=== PATIENT | male | born 1955 | race African-American/Black ===

== ENCOUNTER → 2018-01-03 | Outpatient (CLI) | payer OTHER ==
[~2018-01-03] MED LIST: ASA5UEC PO; ASA81BEC PO; ASPIRIN EC81 M1 PO; CEFDINIR300 MG PO; CLONAZEPAM 1 MG1 M1 PO; COLACE100 MG PO; DIAZEPAM 5 MG5 MG PO; EFFIENT10 MG PO; IMDUR 30 MG TAB30 M1 PO; LISINOPRIL10 MG PO; LORTAB 5-500 T1 EAC1 PO; MILK THISTLE200 M1 PO; MULTI VITAMIN1 EACH PO; NEXIUM40 MG PO; NITRO-DUR 0.1M0.1 M1 TD; NITROGLYCERIN0.4 MG SUBLING; NORCO 10-325 T1 EACH PO; NORVASC10 MG PO; OXYCODONE-ACET1 EAC2 PO; PROSCAR 5MG TABL5 MG PO; TAMSULOSIN HCL0.4 MG PO; UROXATRAL10 MG PO
== END | disposition home or self-care (01) ==
LOC: RAD 08:37
DX: M47.816 Spondylosis without myelopathy or radiculopathy, lumbar region (principal)

== ENCOUNTER → 2018-01-08 | Outpatient (CLI) | payer OTHER | LOC: CAT | PROVIDERS: Family Medicine | DX: R43.2 Parageusia (principal); R43.0 Anosmia; R51 Headache ==

== ENCOUNTER → 2018-08-28 | Outpatient (CLI) | payer OTHER | LOC: MRI 09:29 | DX: N40.0 Benign prostatic hyperplasia without lower urinary tract symptoms (principal); M47.896 Other spondylosis, lumbar region; M41.87 Other forms of scoliosis, lumbosacral region; M51.27 Other intervertebral disc displacement, lumbosacral region ==

== ENCOUNTER → 2019-01-15 | Outpatient (CLI) | payer OTHER ==
[~2019-01-15] VITALS: Ht 185.4 cm; Wt 91.2 kg
[~2019-01-15] MED LIST changes: +GABAPENTIN 100100 MG PO; +MOBIC7.5 MG PO; +MS CONTIN 60 MG60 M1 PO; +NEURONTIN 300300 M1 PO; +UROXATRAL PO; +ZESTRIL5 MG PO
[2019-01-15 10:23] VITALS: BP 117/81
--- NOTE | 2019-01-15 10:42 | NUR ---
Pain Clinic Assessment: 1. History of Osteoarthritis: YES History of Rheumatoid Arthritis: Not Applicable 2. Height: 6 ft. 1 in. 185.4 cm. Weight: 201.0 lb. oz. 91.173 kg. Patient's BMI: 26.5 3. Vital Signs: BP: 117/81 Pulse: 82 Resp: 16 Temp: 02 Sat: 100 ECG Mon: 4. Pain Intensity: 8 5. Fall Risk: Dizziness: Y Needs help standing or walking: N Fallen in the last 3 months: Y Fall risk comments: 6. Patient on Blood Thinner: None 7. History of Hypertension: Y 8. Opioid Therapy greater than 6 weeks: Y Opiate Contract Signed: 9. Risk Assessment Tool Provided: 10. Functional Assessment Tool: 11. Recreational Drug Use: Never Drug Type: Tobacco Use: Current Every Day Smoker Tobacco Type: Cigarettes Amount or Packs/day: VARIES How Many Years: Alcohol Use: Yes Frequency: Special Occasions Quant:
== END ==
LOC: PAIN 06:45
DX: M54.5 Low back pain (principal); M25.551 Pain in right hip; M25.552 Pain in left hip; M25.561 Pain in right knee; F17.210 Nicotine dependence, cigarettes, uncomplicated; Z79.899 Other long term (current) drug therapy; Z72.89 Other problems related to lifestyle

== ENCOUNTER → 2019-02-26 | Outpatient (CLI) | payer OTHER ==
[~2019-02-26] VITALS: Ht 182.9 cm; Wt 89.8 kg
[2019-02-26 07:22] VITALS: BP 121/66
--- NOTE | 2019-02-26 07:23 | NUR ---
Pain Clinic Assessment: 1. History of Osteoarthritis: YES History of Rheumatoid Arthritis: Not Applicable 2. Height: 6 ft. 0 in. 182.9 cm. Weight: 198.0 lb. oz. 89.812 kg. Patient's BMI: 26.8 3. Vital Signs: BP: 121/66 Pulse: 69 Resp: 16 Temp: 02 Sat: 99 ECG Mon: 4. Pain Intensity: 7 5. Fall Risk: Dizziness: N Needs help standing or walking: N Fallen in the last 3 months: N Fall risk comments: 6. Patient on Blood Thinner: None 7. History of Hypertension: Y 8. Opioid Therapy greater than 6 weeks: Y Opiate Contract Signed: 9. Risk Assessment Tool Provided: LOW-0 10. Functional Assessment Tool: 55/70 11. Recreational Drug Use: Never Drug Type: Tobacco Use: Current Every Day Smoker Tobacco Type: Amount or Packs/day: How Many Years: Alcohol Use: Yes Frequency: Quant:
--- NOTE | 2019-02-27 09:13 | HPC ---
[facility] [place] [address] PAIN MANAGEMENT CONSULTATION Name: ROSA HARPER Room #: REG [facility].#: [id number] Admission: 02/26/19 ������������������ Attend Phys: Ray Borjas DO Discharge: ������������������ Date of : 51 Report #: [id number] THIS REPORT FOR: //name// CC: ISATU Go DATE OF SERVICE: 02/26/2019 CHIEF COMPLAINT: Low back pain, right lower extremity pain with paresthesias. HISTORY OF PRESENT ILLNESS: As you know, the patient is a 64-year-old male referred to our service by neurosurgery of [facility] for chronic low back pain, chronic lower extremity pain. The patient was seen in consultation per the request of nurse practitioner, Isaut Terry to have the patient evaluated for spinal cord stimulator trial implantation. He was seen in consultation per nurse tiffanie Terry's request on 01/15/2019. He was subsequently sent for psychiatric evaluation as part of the workup prior to spinal cord stimulator implantation. He has completed the spinal cord stimulator pretty requisite and has received authorization to trial the device today. He returns today in followup visit reporting a pain score of 7/10 to undergo spinal cord stimulator trial implantation to address axial back and lower extremity symptoms. ALLERGIES: No known drug allergies. CURRENT MEDICATIONS: Gabapentin 300 mg 3 times a day, meloxicam 7.5 mg once a day, MS Contin 60 mg twice a day, lisinopril 5 mg once a day, Uroxatral 10 mg once a day, nitroglycerin 0.4 mg once a day, finasteride 5 mg once a day, oxycodone 10/325 one tab p.o. q. 6 hours p.r.n. for pain, amlodipine 10 mg per day, clonazepam 1 mg t.i.d. SOCIAL HISTORY: The patient denies tobacco, IV or illicit drug use. Admits to occasional alcohol beverage. He is disabled. He is not receiving workmen's compensation nor is he trying obtain disability benefit. He is not in litigation in regards to pain, is accompanied by his present in room today. IMAGING: There is no new imaging available. PHYSICAL EXAMINATION: VITAL SIGNS: Blood pressure 121/66, pulse 69, respiratory rate 16 and unlabored, the patient 99% on room air, height 6 feet tall, weight 298 pounds, BMI calculated 26.8. GENERAL: Well-developed, well-nourished, well-hydrated 64-year-old male appearing stated age, pain is rated at around 7/10. [address] [address] PAIN MANAGEMENT CONSULTATION Name: ROSA HARPER [id number] Admission: 02/26/19 ������������������ Attend Phys: Ray Borjas DO Discharge: ������������������ Date of : 51 Report #: [id number] HEENT: Normocephalic, atraumatic. Pupils equal, round, reactive, but enlarged. EXTREMITIES: Show no clubbing, no cyanosis, and no edema. MUSCULOSKELETAL: Lower extremity strength is symmetrical 5/5, muscle bulk and tone equal and symmetrical in comparing left lower extremity to right. Gait is antalgic favoring right lower extremity over left. Seated straight leg raising negative. Supine straight leg raising negative. KEMAL test is negative. Modified Gaenslen's positive for axial low back pain. Ankle clonus negative. Babinski is negative. ASSESSMENT: 1. Chronic lumbar radiculopathy. 2. 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 3. Lumbosacral spondylosis with radiculopathy. 4. Chronic intractable pain. PLAN: 1. The patient returns today in followup visit having received precertification to undergo spinal cord stimulator trial implantation under fluoroscopic guidance. The patient has been advised of the risks and the benefits of this procedure. These risks include but are not necessarily limited to bleeding, bruising, infection, worsening pain, no relief of pain, also risk of temporary or permanent muscle weakness, temporary or permanent nerve damage, possible paralysis, post-dural puncture headache and . The patient states understood and wished to proceed. 2. The patient was advised to decrease the use of his oxycodone over the next week while he is doing his trial. He is to remain on the MS Contin 60 mg twice a day as baseline control. This will keep the patient away from any type of withdrawal effects, though he needs to reduce his use of his breakthrough pain medication during the trial to determine if this would be an effective treatment option to be able to reduce the patient's reliance on opioids. 3. The patient was provided prescription of Keflex 500 mg dose 1 tab p.o. b.i.d. I have given the patient #4 tablets this is for post-surgical treatment. He will finish the doses today and tomorrow and discontinue its use. 4. We will see the patient back in followup visit in 1 week. At that time, review the efficacy of today's spinal cord stimulator trial implant and determine if moving forward with permanent implant would be recommended. PROCEDURE NOTE: DESCRIPTION OF PROCEDURE: Spinal cord stimulator trial implantation with two leads under fluoroscopic guidance. After obtaining informed consent, The patient was then taken to the fluoroscopy suite, placed in prone position with 2 pillows under the abdomen to decrease the lumbar lordosis. Cardiopulmonary monitoring was then established and the patient's vital signs were monitored throughout the procedure. The patient's [facility] [address] [place] [address] PAIN MANAGEMENT CONSULTATION Name: ROSA HARPER [id number] Admission: 02/26/19 ������������������ Attend Phys: Ray Borjas DO Discharge: ������������������ Date of : 51 Report #: [id number] thoracolumbar spine was then prepped and draped in aseptic fashion. He was not given IV sedation prior to procedure. An AP fluoroscopic image was obtained to identify marked midline positions of the T10 through L2 spinous processes. Skin was anesthetized with 7 mL of preservative free lidocaine on the right and 8 mL of preservative free lidocaine on the left. Total of 15 mL of lidocaine 1% was injected. This was done prior to the introduction of the 14-gauge 4-inch Tuohy needles. Skin entry site was at the proximal level of the L1 vertebral body. Needle was advanced using a paramedian approach to the right of midline at a 45-degree angle. Loss of resistance to air was utilized to verify placement within the epidural space. Epidural space entered at the T12-L1 interspace. Lateral fluoroscopic view was obtained to confirm the position of the Tuohy needle within the epidural space. Aspiration noted to be negative for heme or cerebrospinal fluid. The patient did not complain of pain or paresthesias with needle placement. The spinal cord stimulating lead was then advanced through the Tuohy needle under direct visualization within the midline. The tip of the stimulating needle lead was then in line with the inferior endplate of T7 vertebral body and located approximately 1 mm from midline. Our attention was then directed to the left side. A 14-gauge 4-inch Tuohy needle was then advanced under fluoroscopic guidance with the approximate starting level of the L1 vertebral body. Needle was advanced in a left paramedian approach approximately 45 degree angle. Loss of resistance to air was utilized to verify placement within the epidural space. Epidural space was entered at the T12-L1 interspace. Lateral fluoroscopic view obtained to confirm the position of the Tuohy needle within the epidural space. Aspiration noted to be negative for heme or cerebrospinal fluid. The patient did not complain of pain or paresthesias with needle placement. The spinal cord stimulating lead was then advanced through the Tuohy needle under direct visualization to the left of midline. The lead was then advanced until the tip of the stimulating lead was then aligned with the superior endplate of T8 vertebral body and located within the midline. At this point, temporary extensions were connected to both the stimulating lead. The stylets were then removed from the Tuohy needles as were the needles themselves. Once both were removed, positions were rechecked of the lead position, making sure they had not changed. A stimulating leads were then anchored to the patient's back with benzoin, Steri-Strips and OpSite bandaging. The patient was then placed in a seated position. We performed multiple maneuvers to potentially cause movement of the leads themselves. The patient was then placed back in a prone position. X-ray imaging did confirm that the leads had displaced by approximately one-half of the vertebral body in an appropriate positioning for programming of the leads with the sweet spot between T9 and T10. The patient tolerated procedure well, carefully escorted to recovery room in stable condition. There were no apparent complications. We spent nearly 30 [facility] [address] [place] [address] PAIN MANAGEMENT CONSULTATION Name: ROSA HARPER Room #: REG CL Raquel#: [id number] Admission: 02/26/19 ������������������ Attend Phys: Ray Borjas DO Discharge: ������������������ Date of : 51 Report #: [id number] minutes of time preparing the patient for the trial itself. The programming was established and the patient was given variable conditions to which they can make adjustments in the device itself. We did advise the patient not to get the area wet. He is not to bathe or shower. The patient was advised if he notes any excessive drainage from the insertion sites increasing back pain, neck pain, fever, chills, night sweats, increasing weakness in the lower extremities, he is to contact the on-call pain physician was given the numbers for the pain physician salesperson men's hats 24 hours a day. If he is having trouble with capture of his typical pain, he is to contact the [employer] device technical account representative for which the patient was given numbers for contact. We will see the patient back in followup visit in 1 week. At that time, we will review the efficacy of the spinal cord stimulator trial and determine if permanent implant would be recommended. ��������������������������������������������� <ELECTRONICALLY SIGNED> ���������������������������������������� By: Ray Borjas DO ��������������������������������������������� 02/27/19 0913 1214 [id number] Ray Borjas DO /nt
== END | disposition home or self-care (01) ==
LOC: PAIN 06:48
DX: M51.16 Intervertebral disc disorders with radiculopathy, lumbar region (principal); M47.897 Other spondylosis, lumbosacral region; Z79.899 Other long term (current) drug therapy; Z98.890 Other specified postprocedural states; M54.5 Low back pain; F17.200 Nicotine dependence, unspecified, uncomplicated

== ENCOUNTER → 2019-03-05 | Outpatient (CLI) | payer OTHER ==
[~2019-03-05] VITALS: Ht 182.9 cm; Wt 90.5 kg
--- NOTE | ~2019-03-05 | HPC ---
[facility] [place] [address] PAIN MANAGEMENT CONSULTATION Name: ROSA HARPER Room #: REG [facility].#: [id number] Admission: 03/05/19 ������������������ Attend Phys: Ray Borjas DO Discharge: ������������������ Date of : 51 Report #: [id number] THIS REPORT FOR: //name// CC: Glory Go MD DATE OF SERVICE: 03/05/2019 REFERRING PHYSICIAN: Nurse practitioner, Milagros Terry. CHIEF COMPLAINT: Low back pain, right lower extremity pain and paresthesias. HISTORY OF PRESENT ILLNESS: As you know, the patient is a 64-year-old male who has just completed a successful spinal cord stimulator trial. The patient reports about 70% improvement in overall pain with the device. He did very well until just recently, where he believes he might have "moved the lead". He lost efficacy with the device late afternoon yesterday. He returns today for explantation of the device and to discuss the possibility of moving forward to permanent implant. ALLERGIES: No known drug allergies. CURRENT MEDICATIONS: Gabapentin, meloxicam, MS Contin, lisinopril, Uroxatral, nitroglycerin, finasteride, oxycodone, amlodipine and clonazepam. SOCIAL HISTORY: The patient denies tobacco, IV or illicit drug use. Admits to occasional alcoholic beverage. He is on disability. He is accompanied by his , present in the room today. IMAGING: No new imaging available. PHYSICAL EXAMINATION: VITAL SIGNS: Blood pressure 101/78, pulse 83 and respiratory rate 14 and unlabored. The patient is 99% on room air. Height 6 feet tall, weight 199.6 pounds and BMI calculated 27.1. GENERAL: Well-developed, well-nourished and well-hydrated 64-year-old male, appearing his stated age, placing current pain score around 0/10. HEENT: Normocephalic, atraumatic. Pupils equal, round and reactive to light. EXTREMITIES: Show no clubbing, no cyanosis and no edema. MUSCULOSKELETAL: Lower extremity strength appears symmetrical, 5/5. Muscle bulk and tone equal and symmetrical when comparing left lower extremity to right. Gait is antalgic, favoring right lower extremity over the left. Seated straight leg raising negative. Supine straight leg raising negative. There is clean, dry and intact bandaging from the spinal cord stimulator trial in place [address] [address] PAIN MANAGEMENT CONSULTATION Name: ROSA HARPER Room #: REG CLI [facility]#: [id number] Admission: 03/05/19 ������������������ Attend Phys: Ray Borjas DO Discharge: ������������������ Date of : 51 Report #: [id number] over the lumbar spine. ASSESSMENT: 1. Chronic lumbar radiculopathy. 2. Displacement of the lumbar intervertebral disk with radiculopathy. 3. Lumbosacral spondylosis with radiculopathy. 4. Failed lumbar spine surgery. 5. Chronic intractable pain. PLAN: 1. The patient has returned today in followup visit for explantation of the spinal cord stimulating device. The patient did very well with this trial, receiving 70% or greater improvement in overall pain utilizing the [employer] device. He is very pleased with response to this device and wishes to move forward with permanent implantation. 2. The patient will contact Dr. Tran's office for return visit and scheduling of the implantation of a [employer] Device to help with low back pain and right lower extremity symptoms. As indicated above, the patient received greater than 70% improvement in overall pain and was able to return to the majority of his activities of daily living without significant pain interference. The patient knew when he displaced the leads, as his pain intensified on the right leg beginning with cramping sensations and spasming. This continues today even with adjustments in the programming prior. He returns for explantation of the device, but does wish to move forward with the permanent implant in hopes of gaining improvement in symptoms. PROCEDURE NOTE DESCRIPTION OF PROCEDURE: Explantation of a spinal cord stimulating device. DESCRIPTION OF PROCEDURE: The patient was placed in a seated position. We removed all OpSite bandaging and Steri-Strips. There were two spinal cord stimulator leads in place. There was no erythema or drainage around the insertion sites. The leads were extracted without complication. The leads had both tips intact as well as all the 8 electrodes on each lead. The back was then cleaned sterilely and sterile bandages were then placed over the injection sites. The patient was advised not to get the area wet for the next 24 hours; he could then begin to shower and do normal activities as tolerated. ��������������������������������������������� ���������������������������������������� By: ��������������������������������������������� 1304 0001 Ray Borjas DO /nt
[2019-03-05 10:32] VITALS: BP 101/78
--- NOTE | 2019-03-05 10:53 | NUR ---
Pain Clinic Assessment: 1. History of Osteoarthritis: YES History of Rheumatoid Arthritis: Not Applicable 2. Height: 6 ft. 0 in. 182.9 cm. Weight: 199.6 lb. oz. 90.538 kg. Patient's BMI: 27.1 3. Vital Signs: BP: 101/78 Pulse: 83 Resp: 14 Temp: 02 Sat: 99 ECG Mon: 4. Pain Intensity: 0 5. Fall Risk: Dizziness: Y Needs help standing or walking: N Fallen in the last 3 months: N Fall risk comments: 6. Patient on Blood Thinner: None 7. History of Hypertension: Y 8. Opioid Therapy greater than 6 weeks: Y Opiate Contract Signed: 9. Risk Assessment Tool Provided: LOW-0 10. Functional Assessment Tool: 55/70 11. Recreational Drug Use: Never Drug Type: Tobacco Use: Current Every Day Smoker Tobacco Type: Amount or Packs/day: How Many Years: Alcohol Use: Yes Frequency: Quant:
== END ==
LOC: PAIN 06:57
DX: M51.16 Intervertebral disc disorders with radiculopathy, lumbar region (principal); M47.27 Other spondylosis with radiculopathy, lumbosacral region; G89.29 Other chronic pain; Z79.899 Other long term (current) drug therapy

== ENCOUNTER → 2019-09-10 | Outpatient (CLI) | payer OTHER ==
[~2019-09-10] VITALS: Ht 182.9 cm; Wt 90.7 kg
[~2019-09-10] MED LIST changes: +LINZESS290 MCG PO; +PROAIR HFA8.5 GM INH
--- NOTE | 2019-09-12 16:06 | PATH ---
[facility] [address] [place] [address] PATHOLOGY RPT PROCEDURE Name: LIT RAYGOZA Room #: REG [facility] Rosalie.#: [id number] Admission: 09/10/19 Date of : 51 Discharge: Report #: [id number] Path Case #: [id number] [facility] Accession Number: [id number] . 01 Material submitted: . PART A: duodenum - BX OF DUODENUM PART B: stomach - BX OF ANTRUM PART C: esophagus - BX OF DISTAL ESOPHAGUS. Modifiers: distal PART D: esophagus - BX OF MID ESOPHAGUS. Modifiers: mid PART E: esophagus - BX OF UPPER ESOPHAGUS. Modifiers: upper . 01 Clinical history: . Esophagitis, hiatal hernia, gastritis . 02 Diagnosis: A. Small bowel mucosa, duodenum R/O celiac disease, endoscopic biopsy: - No diagnostic abnormalities present. - Negative for villous blunting or increase in intraepithelial lymphocytes. . B. Gastric mucosa, antrum R/O H. pylori, endoscopic biopsy: - Mild reactive gastropathy. - Negative for intestinal metaplasia or atrophy. - Negative for Helicobacter pylori (properly controlled immunohistochemical stain performed. . C. Gastric cardia-type mucosa, distal esophagus to R/O eosinophilic esophagitis, endoscopic biopsy: - Mild chronic inflammation. - Squamous epithelium not present for evaluation. - No increase in eosinophils within the infiltrate. - Negative for intestinal metaplasia or dysplasia. . D. Squamous mucosa, mid esophagus to R/O eosinophilic esophagitis, endoscopic biopsy: - Mild active esophagitis. - Negative for increase in intraepithelial eosinophils. - Negative for intestinal metaplasia or dysplasia. . E. Squamous mucosa, upper esophagus to R/O Emeka, endoscopic biopsy: - Mild to moderate active esophagitis with numerous intraepithelial neutrophils. - No increase in intraepithelial eosinophils (1-2/hpf). - S fungal special stain ordered, to be reported as an addendum. (IUV:jael; 09/11/2019) S 09/11/2019 1352 Local . [address] [address] PATHOLOGY RPT PROCEDURE Name: LIT RAYGOZA Room #: REG [facility].#: [id number] Admission: 09/10/19 Date of : 51 Discharge: Report #: [id number] Path Case #: [id number] Addendum: . This addendum is issued subsequent to reviewing a properly controlled S fungal special stain performed on block E1. It shows no definite fungal hyphal elements present within the intact epithelium. The originally rendered diagnosis remains unchanged. (IUV:jael; 09/12/2019) . . . Professional services performed by [facility] at [facility], [address], [place] [address]. Technical services performed by [facility] at [address] [place] [address], [address], [place] [address]. QTP/09/12/2019 Addendum Electronically Signed by Sabien Pierre MD, Pathologist . 02 Electronically signed: . Sabine Pierre MD, Pathologist NPI- [id number] . 01 Gross description: . A. Received in formalin labeled "Lit Raygoza BX of duodenum," and additionally labeled on the requisition as "to rule out celiac," is a single segment of schmitz soft tissue measuring 0.5 cm in maximum dimension. The specimen is entirely submitted in cassette A1. . B. Received in formalin labeled "Lit Raygoza, BX of antrum," and additionally labeled on the requisition as "to rule out H. pylori," are 2 segments of schmitz soft tissue measuring 0.7 x 0.2 x 0.2 cm in aggregate dimensions and ranging from 0.3 to 0.4 cm in maximum dimension. The specimen is submitted entirely in cassette B1. . C. Received in formalin labeled "Lit Raygoza, BX of distal esophagus," and additionally labeled on the requisition as "to rule out eosinophilic esophagitis," is a single segment of schmitz soft tissue measuring 0.4 cm in maximum dimension. The specimen is entirely submitted in cassette C1. . D. Received in formalin labeled "Lit Raygoza, BX of midesophagus," and additionally labeled on the requisition as "to rule out eosinophilic esophagitis," are 2 segments of schmitz soft tissue measuring 1.0 x 0.2 x 0.1 cm in aggregate dimensions and ranging from 0.4 to 0.6 cm in maximum dimension. The specimen is submitted entirely in cassette D1. . E. Received in formalin labeled "Lit Raygoza, BX of upper esophagus," and additionally labeled on the requisition as "to rule out emeka," is a single segment of schmitz soft tissue measuring 0.5 cm in maximum dimension. The specimen is entirely submitted in cassette E1. (TSD; 09/10/2019) [facility] [address] [place] [address] PATHOLOGY RPT PROCEDURE Name: LEROYLIT BRADFORD Room #: REG [facility].#: [id number] Admission: 09/10/19 Date of : 51 Discharge: Report #: [id number] Path Case #: [id number] TOB/TOB 09/10/2019 1754 Local . 02 Pathologist provided ICD-10: K31.9, K20.9 . 02 CPT . 892949, 053902, 322514, 306220, 770589, [id number], [id number] Specimen Comment: A courtesy copy of this report has been sent to [phone], [phone] Specimen Comment: [id number] Specimen Comment: Report sent to / DR QUINONES Performed at: [address] [facility], [place] [id number] MD Angus Hough MD Phone: [phone] Performed at: [address] [facility] [address] [id number] MD Sabine Pierre MD Phone: [phone]
== END | disposition home or self-care (01) ==
LOC: GI 08:25
DX: R10.10 Upper abdominal pain, unspecified (principal); K31.9 Disease of stomach and duodenum, unspecified; K22.2 Esophageal obstruction; K20.9 Esophagitis, unspecified; K44.9 Diaphragmatic hernia without obstruction or gangrene; I10 Essential (primary) hypertension; E78.00 Pure hypercholesterolemia, unspecified; I25.2 Old myocardial infarction; G47.30 Sleep apnea, unspecified; Z98.890 Other specified postprocedural states; Z79.899 Other long term (current) drug therapy; Z85.51 Personal history of malignant neoplasm of bladder
CPT/HCPCS: 62110; 62900

== ENCOUNTER → 2020-01-07 | Outpatient (CLI) | payer OTHER | LOC: SJCVC 11:19 | DX: I21.09 ST elevation (STEMI) myocardial infarction involving other coronary artery of anterior wall (principal); I25.10 Atherosclerotic heart disease of native coronary artery without angina pectoris; I10 Essential (primary) hypertension; F41.9 Anxiety disorder, unspecified; F32.9 Major depressive disorder, single episode, unspecified; Z79.82 Long term (current) use of aspirin; Z79.899 Other long term (current) drug therapy ==

== ENCOUNTER → 2020-01-07 | Outpatient (CLI) | payer OTHER | LOC: RAD 09:46 | DX: R07.9 Chest pain, unspecified (principal) ==

== ENCOUNTER → 2020-01-28 | Outpatient (CLI) | payer OTHER | LOC: SJCVCIMAG 01-20 16:30 | DX: I07.1 Rheumatic tricuspid insufficiency (principal); I11.9 Hypertensive heart disease without heart failure; I25.10 Atherosclerotic heart disease of native coronary artery without angina pectoris; R07.9 Chest pain, unspecified; Z79.82 Long term (current) use of aspirin; Z79.899 Other long term (current) drug therapy ==

== ENCOUNTER → 2020-01-31 | Outpatient (CLI) | payer OTHER | LOC: SJCVC 14:29 | DX: I25.10 Atherosclerotic heart disease of native coronary artery without angina pectoris (principal); I10 Essential (primary) hypertension; M54.9 Dorsalgia, unspecified; G89.29 Other chronic pain; N52.1 Erectile dysfunction due to diseases classified elsewhere; K21.9 Gastro-esophageal reflux disease without esophagitis; I25.2 Old myocardial infarction; E78.5 Hyperlipidemia, unspecified; F17.210 Nicotine dependence, cigarettes, uncomplicated; Z79.899 Other long term (current) drug therapy ==

== ENCOUNTER → 2020-08-12 | Outpatient (CLI) | payer OTHER ==
[~2020-08-12] VITALS: Ht 185.4 cm; Wt 90.6 kg
[~2020-08-12] MED LIST changes: +BUTRANS1 EAC1 TRANSDERM; +TRAMADOL 50 MG50 MG PO
--- NOTE | ~2020-08-12 | HPC ---
[address] [place] [address] PAIN MANAGEMENT CONSULTATION Name: ROSA HARPER [id number] Admission: 08/12/20 Attend Phys: Ray Borjas DO Discharge: Date of : 51 Report #: [id number] THIS REPORT FOR: cc: Shelton Tinsley MD, [place] S. MD Johnson, James E. DO ~ CC: Alfonso Tinsley DATE OF SERVICE: 08/12/2020 CHIEF COMPLAINT: Neck pain, back pain, bilateral lower extremity pain with paresthesias, right greater than left. HISTORY OF PRESENT ILLNESS: As you know, the patient is a 65-year-old male who we have seen in the past per the request of his neurosurgery team to undergo a spinal cord stimulator trial implantation. The patient underwent the implantation without improvement. He did not move forward with a surgical implantation of a permanent device. He has been lost to followup visit. Apparently, he has been receiving opioid medications from other physicians. He states recently his primary care physician had him on fentanyl and Percocet, but when the patient requested reduction in treatment reducing his medication, he was subsequently discharged from their clinic. I cannot corroborate this story though this does not sound consistent with my experience with physicians typically if patients are requesting reduction in opioid medications, they are encouraged. The patient then transferred his care to a new primary care physician, who reports he is unwilling or unable to provide opioid medications or controlled substances. The patient discussed his case with his physician, Dr. Germain, who referred the patient over to our clinic to discuss treatment options, provide initiation of medication therapy, to return to their clinic to continue that dosing recommendations. He has been referred to our service to discuss the options for treatment and if necessary initiate medications and return his care to Dr. Germain for continuation of treatment. The patient indicates today his pain is continuous and constant. He describes the pain as 7/10. He indicates pain is exacerbated with walking, sitting, standing and lying down, improves with repositioning activities and opioid medications. He has been referred to our service to discuss the treatment options and suggestions for treatment from a medication standpoint. ALLERGIES: No known drug allergies. CURRENT MEDICATIONS: Clonazepam 1 mg b.i.d., amlodipine 10 mg p.o. at bedtime, finasteride 5 mg per day, nitroglycerin 0.4 mg p.r.n., Uroxatral 10 mg 2 [place] [address] PAIN MANAGEMENT CONSULTATION Name: ROSA HARPER [id number] Admission: 08/12/20 Attend Phys: Ray Borjas DO Discharge: Date of : 51 Report #: [id number] once a day, albuterol 2 puffs q.4 hours p.r.n., aspirin 81 mg per day, tramadol 50 mg q. 8 hours p.r.n. pain. SOCIAL HISTORY: The patient reports he smokes 1 pack per day and has done so for multiple years. Denies IV or illicit drug use. Denies any chronic alcohol use. He is accompanied by his significant other present in room today. IMAGING: No imaging available. PQRS: The patient has known arthritic changes of the cervical spine, lumbar spine. No rheumatoid arthritis. The patient is placing pain intensity is 7/10. He is not a fall risk nor has he had a fall in last 3 months. He is not on blood thinners, but is treated for hypertension. He is on chronic opioids, has a low opioid addiction potential based on our assessment tool. Pain impact is 55/70, severe interference of daily activities secondary to pain. PHYSICAL EXAMINATION: VITAL SIGNS: Blood pressure 141/95, pulse 78, respiratory rate 14 and unlabored. The patient is 100% on room air, height 6 feet 1 inch tall, weight 199.8 pounds, BMI calculated 26.4. GENERAL: Well-developed, well-nourished, well-hydrated 65-year-old male, appears stated age, pain is rated around 7/10. HEENT: Normocephalic, atraumatic. Pupils equal, round and reactive. Extraocular muscles are intact. EXTREMITIES: Show no clubbing, no cyanosis. No notable edema. MUSCULOSKELETAL: Lower extremity strength appears symmetrical 5/5. He is intact to light touch from L1 through S2 dermatomes. Seated straight leg raising negative. Supine straight leg raising negative. Jefry's test is negative. Modified Gaenslen's positive for axial low back pain. Ankle clonus negative. Babinski is negative. Gait appears somewhat antalgic though he shifts favor between left and right lower extremity depending on angle of movement. Lumbar provocation testing met with increasing axial back pain, no radiation of symptoms. ASSESSMENT: 1. Chronic low back pain. 2. Possible lumbar radiculopathy. 3. Lumbosacral spondylosis with radiculopathy. 4. Chronic intractable pain. PLAN: 1. The patient has been referred to our clinic by his physician, Dr. Germain to discuss options for treatment for suspected lumbar radiculopathy. We discussed the following with the patient today as treatment options. We do not have any imaging of his lumbar spine to help determine the level of pathology he may have in the lumbar spine. He reports to us that he has been advised by [facility] [address] [place] [address] PAIN MANAGEMENT CONSULTATION Name: ROSA HARPER [facility] [id number] Admission: 08/12/20 Attend Phys: Ray Borjas DO Discharge: Date of : 51 Report #: [id number] Surgery in the past, he is a nonsurgical candidate, though I cannot confirm or deny this report. Again, no imaging available to help direct our care. We discussed with the patient the treatment options we have with lumbar radiculopathy following was discussed with the patient today. We discussed physical therapy, stretching exercises and traction techniques as a treatment option. The patient has not availed himself of these options to date. We discussed medication management with the addition of treatment with nonsteroidal anti-inflammatories if possible. We discussed neuropathic pain medication such as amitriptyline, nortriptyline, Cymbalta and Lyrica as well as gabapentin. We also discussed the use of opioids for which the patient has been questioning and requesting throughout our discussion today. We also discussed surgical options with the patient, which I believe ultimately will be necessary. After the review of all the treatment options, the patient requested that he initiate medication management. 2. We advised the patient at this time, we would recommend treatment with a Butrans patch. This is buprenorphine transdermal product. I will provide good baseline pain control with minimal side effects. We have initiated the medication at a 10 mcg dose q. 72 hours. I have given the patient #4 patches. I did advise the patient we were requested by the primary team to make appropriate suggestions for treatment. He will be then returning to their services to continue therapy. We had agreed based on the referral to see the patient adjust the therapy appropriately and return his care. He will follow up with his referring physician, Dr. Germain based on the referral today to continue this therapy. 3. The patient requested refill of clonazepam 1 mg dose. This is not an analgesic medication and will have to be provided through his PCP. We do not recommend benzodiazepines with concomitant use of opioid medications. This could lead to severe respiratory depression and possible and is not recommended. 4. We have recommended the patient follow up with his neurosurgery team. We had seen the patient back a year and a half ago where he underwent requested spinal cord stimulator. This was ineffective. Surgical options will be likely and necessary as patient is going to ultimately fail opioid medications even the medications we discussed and recommended today. He will need to look into a more definitive treatment course. 5. We did discuss with the patient the possibility of undergoing epidural injections. He states he has had them in the past and would not be willing to consider this as an option. We will respect the patient's opinion on this issue. 6. We have plans to see the patient back in followup visit in 1 month. At that time, we will discuss the efficacy of the Butrans provided today. If further adjustments are necessary, we will make those suggestions to the team that will be continuing the therapy, the referring physician, Dr. Germain and his nurse practitioner, nurse Tony. The patient will be following up with them to continue this treatment option as we at this point are not accepting new opioid [address] [address] PAIN MANAGEMENT CONSULTATION Name: ROSA HARPER Room #: REG [facility] M.R.#: [id number] Admission: 08/12/20 Attend Phys: Ray Borjas DO Discharge: Date of : 51 Report #: [id number] medication management patients. We are hopeful the patient will see good benefit with this month long trial. If so, we recommend continuing the therapy. We will keep you apprised of his response. By: [id number] Ray Borjas DO /nt
[2020-08-12 13:34] VITALS: BP 141/95
--- NOTE | 2020-08-12 13:56 | NUR ---
Pain Clinic Assessment: 1. History of Osteoarthritis: YES History of Rheumatoid Arthritis: Not Applicable 2. Height: 6 ft. 1 in. 185.4 cm. Weight: 199.8 lb. oz. 90.629 kg. Patient's BMI: 26.4 3. Vital Signs: BP: 141/95 Pulse: 78 Resp: 14 Temp: 02 Sat: 100 ECG Mon: 4. Pain Intensity: 7 5. Fall Risk: Dizziness: Y Needs help standing or walking: N Fallen in the last 3 months: N Fall risk comments: 6. Patient on Blood Thinner: None 7. History of Hypertension: Y 8. Opioid Therapy greater than 6 weeks: Y Opiate Contract Signed: 9. Risk Assessment Tool Provided: LOW-0 10. Functional Assessment Tool: 55/70 11. Recreational Drug Use: Never Drug Type: Tobacco Use: Current Every Day Smoker Tobacco Type: Cigarettes Amount or Packs/day: 1 PER DAY How Many Years: Alcohol Use: Yes Frequency: Quant:
== END ==
LOC: PAIN 06:53
PROVIDERS: ATTEND Anesthesiology Pain Medicine
DX: M47.27 Other spondylosis with radiculopathy, lumbosacral region (principal); M79.605 Pain in left leg; M79.604 Pain in right leg; R20.2 Paresthesia of skin; G89.29 Other chronic pain; Z79.899 Other long term (current) drug therapy

== ENCOUNTER → 2021-07-15 | Outpatient (CLI) | payer OTHER | LOC: RAD 14:11 | PROVIDERS: ATTEND Internal Medicine | DX: J43.9 Emphysema, unspecified (principal) ==